=== PATIENT | female | born 1950 | race Caucasian/White ===

== ENCOUNTER 2016-12-03 17:29 | Emergency (ER) | payer MEDICARE ==
[~2016-12-03 17:29] MED LIST: ANTIVERT PO; BACTRIM DS TABL1 TA1 PO; BACTROBAN15 GM TOP; CAPOZIDE; CELEBREX PO; CIPRO PO; CLEOCIN HCL300 M1 PO; CRESTOR; CRESTOR10 MG PO; DARVOCET-N 1001 TA1 PO; FLAGYL PO; FLEXERIL PO; HYDROCHLOROTHIA25 MG PO; KLONOPIN PO; LASIX20 MG; MACROBID100 M1 PO; NAPROSYN500 MG PO; PERCOCET5/325 PO; PRILOSEC20 MG PO; SKELAXIN PO; TYLENOL325 M1 PO; VITAMIN C PO; VITAMINS; ZITHROMAX PO; ZOCOR PO; ZOFRAN PO
== END 2016-12-03 18:53 | disposition home or self-care (01) ==
LOC: SED 17:29
DX: M79.661 Pain in right lower leg (principal); M79.662 Pain in left lower leg; G89.29 Other chronic pain; M54.9 Dorsalgia, unspecified; M89.29 Other disorders of bone development and growth, multiple sites; Z91.040 Latex allergy status; Z98.890 Other specified postprocedural states
CPT/HCPCS: 99283

== ENCOUNTER → 2016-12-04 | Outpatient (CLI) | payer MEDICARE ==
--- NOTE | ~2016-12-04 | US84 ---
[id number] [address] [address] [id number] O MR#: [id number] Acc #: [id number] NAME: BASIL MONTALVO : 1950 SEX: F STUDY DATE/TIME: 12/04/2016 10:28 UNIT: [facility] ROOM: STUDY DESCRIPTION: US LE Veins Complete Saturnino Stdy Attending Physician: Dick Young Referring Physician: Dick Young Ordering Physician: Lizbet Monge M.D. Primary Care Physician: Lizbet Monge M.D. MEDICAL IMAGING REPORT This report is preliminary unless electronic signature is present. EXAM Bilateral lower extremity venous duplex 12/04/2016 HISTORY Bilateral calf pain and edema for 8 months. Evaluate for deep vein thrombosis. TECHNIQUE Venous ultrasound examination of both lower extremities was performed using grayscale, spectral Doppler and color flow Doppler imaging. FINDINGS The examination is negative. There is no evidence of deep venous thrombus from the groin to the lower calf bilaterally. Visualized greater saphenous veins are also patent. IMPRESSION Negative examination. No evidence of lower extremity deep venous thrombosis. Dictated by... Mauro Yin M.D. THIS IS AN ELECTRONICALLY VERIFIED REPORT Mauro Yin M.D. at 12/05/2016 8:20 AM KRT/to TD: 12/04/2016 16:22 JOB #: [id number] MEDICAL IMAGING REPORT Page 1 of 1
== END | disposition home or self-care (01) ==
LOC: SNIV 08:06
DX: M79.662 Pain in left lower leg (principal); M79.661 Pain in right lower leg; R60.0 Localized edema
CPT/HCPCS: 93970

== ENCOUNTER → 2017-02-19 | Outpatient (CLI) | payer MEDICARE ==
--- NOTE | ~2017-02-19 | MY30 ---
[facility] A Service of [facility] RADIOLOGY TEXT RESULTS PATIENT: BASIL MONTALVO LOCATION: [facility] : 46 UNIT #: [id number] AGE: [address]: Lizbet Monge MD SEX: F ORDER DR: [id number] [address] [address] [id number] O MR#: [id number] Acc #: [id number] NAME: BASIL MONTALVO : 1950 SEX: F STUDY DATE/TIME: 02/19/2017 9:06 UNIT: [facility] ROOM: STUDY DESCRIPTION: MY SCREEN LIZETH BILAT DIGITAL Attending Physician: Lizbet Monge M.D. Referring Physician: Lizbet Monge M.D. Ordering Physician: Lizbet Monge M.D. Primary Care Physician: Lizbet Monge M.D. MEDICAL IMAGING REPORT This report is preliminary unless electronic signature is present. EXAM Bilateral digital screening mammogram with CAD, 02/19/2017. HISTORY No documented personal or family history of breast cancer. Benign breast surgery 45 years ago (side not designated on the history sheet). COMPARISON Bilateral screening mammogram 11/15/2015, 10/29/2014, 12/26/2012. FINDINGS CC and MLO views were obtained of each breast, utilizing digital technique, and reviewed with an FDA-approved CAD device. Scattered fibroglandular densities are present bilaterally. No focal suspicious nodule is seen. Asymmetric fibroglandular tissue within the lateral left breast in the CC view appears stable. Calcifications in the left subareolar region also appear unchanged. No new suspicious cluster of microcalcifications. IMPRESSION Benign findings. Routine bilateral screening mammogram is recommended in 1 year. Patients over the age of 40 are entered into a reminder system with target due date for the next mammogram. A result letter will also be sent to the patient. BIRADS: 2 Benign finding. Dictated by... [facility] A Service [facility] RADIOLOGY TEXT RESULTS PATIENT: BASIL MONTALVO LOCATION: [facility] : 46 UNIT #: [id number] AGE: [address]: Lizbet Monge MD SEX: F ORDER DR: Bita Patton M.D. THIS IS AN ELECTRONICALLY VERIFIED REPORT Bita Patton M.D. at 02/19/2017 5:03 PM ANABEL/neeta TD: 02/19/2017 15:44 JOB #: [id number] MEDICAL IMAGING REPORT Page 1 of 1
== END | disposition home or self-care (01) ==
LOC: SMAM 02-01 10:45
DX: Z12.31 Encounter for screening mammogram for malignant neoplasm of breast (principal)
CPT/HCPCS: G0202